=== PATIENT | female | born 1935 | race Caucasian/White ===

== ENCOUNTER 2021-01-18 17:55 | Observation (INO) | payer MEDICARE ==
[2021-01-18] MEDS ORDERED: Sodium Chloride 0.9% 10 ML Syringe FLUSH PRN (18:05)
--- NOTE | 2021-01-18 18:12 | EDM.PDOC ---
ED HPI GENERAL MEDICAL PROBLEM - General Chief Complaint: General Stated Complaint: Weakness Time Seen by Provider: 01/18/21 17:59 Source of Information: Reports: EMS, Family, [facility] Records - History of Present Illness INITIAL COMMENTS - FREE TEXT/NARRATIVE: Gail is an 85 y/o female who arrives to the ER via EMS after assisted living staff at the [facility] called 911. Staff there reported that the patient "just had a bad day". She apparently had a decreased appetite at lunch and then only drank a little Ensure for supper. No fever or respiratory sx. - Related Data Allergies Allergy/AdvReac Type Severity Reaction Status Date / Time celecoxib [From Celebrex] Allergy Stomach Verified 08/29/15 10:29 Upset Home Meds: Home Meds Acetaminophen [Pain Reliever] 500 mg PO ASDIRECTED 08/26/15 [History] Calcium Carbonate/Vitamin D3 [Calcium 500 + Vit D 200 Tablet] 1 tab PO DAILY 08/26/15 [History] Citalopram [Celexa] 1 tab PO DAILY 08/26/15 [History] Ibuprofen [Advil] 200 mg PO Q6HR 08/26/15 [History] Loratadine [Claritin] 10 mg PO DAILY 08/26/15 [History] Magnesium Amino Acid Chelate [Magnesium] 100 mg PO DAILY 08/26/15 [History] Multivitamin [Multiple Vitamins] 1 each PO DAILY 08/26/15 [History] Naproxen Sodium [Aleve] 2 tab PO ASDIRECTED 08/26/15 [History] Pantoprazole Sodium 40 mg PO DAILY 08/26/15 [History] Potassium Chloride 10 meq PO DAILY 08/26/15 [History] atorvaSTATin [Lipitor] 1 tab PO DAILY 08/29/15 [History] Past Medical History Other Gastrointestinal History: hx colon ca Other Musculoskeletal History: R GREAT TOE PAIN Other Neuro History: stroke - 2007 ED ROS GENERAL - Review of Systems Review Of Systems: See Below Reason Not Obtained: Patient has dementia and ROS hard to obtain Constitutional: Reports: Weakness HEENT: Reports: No Symptoms Respiratory: Reports: No Symptoms Cardiovascular: Reports: No Symptoms Endocrine: Reports: No Symptoms GI/Abdominal: Reports: Decreased Appetite : Reports: No Symptoms Musculoskeletal: Reports: No Symptoms Skin: Reports: No Symptoms Neurological: Reports: No Symptoms Psychiatric: Reports: No Symptoms Hematologic/Lymphatic: Reports: No Symptoms Immunologic: Reports: No Symptoms ED EXAM, GENERAL - Physical Exam Exam: See Below General Appearance: Alert, WD/WN, No Apparent Distress (Elderly female, pleasant and answers questions. Forgetful at times.) Eye Exam: Bilateral Eye: PERRL Ears: Normal Canal, Hearing Grossly Normal, Normal TMs Nose: Normal Inspection, Normal Mucosa Throat/Mouth: Other (tongue and lips dry) Head: Atraumatic, Normocephalic Neck: Normal Inspection, Supple, Non-Tender Respiratory/Chest: No Respiratory Distress, Lungs Clear, Chest Non-Tender Cardiovascular: Normal Peripheral Pulses, Regular Rate, Rhythm, No Murmur GI/Abdominal: Normal Bowel Sounds, Soft, Non-Tender (Female) Exam: Normal External Exam Rectal (Female) Exam: Deferred Back Exam: Normal Inspection Extremities: Normal Inspection, Normal Range of Motion, Normal Capillary Refill Neurological: Alert, CN II-XII Intact, Memory Loss Recent Events Psychiatric: Flat Affect Skin Exam: Warm, Dry, Intact, Normal Color, No Rash Lymphatic: No Adenopathy #1 Interpretation EKG Date: 01/18/21 Time: 18:35 Rhythm: NSR Rate (Beats/Min): 90 [place]: Normal P-Wave: Present QRS: Normal ST-T: Normal QT: Normal Comparison: NA - No Prior EKG Course - Vital Signs Text/Narrative:: 1758 The patient was seen on arrival by the TRAFFIC MANAGER. Labs, Xray, and EKG ordered. Note temp 100.8 tympanically on arrival to the ER. 1929 Repeat temp=99.4, labs pending. RN to bedside, reports patient could not transfer to toilet and had taken her pants and shoes off. Patient needed 2 staff to transfer. Labs reviewed, note BUN=24, Parachute Inspector=1.5, CRP=5.4, WBC=10.7, Neuts=80.4%. A liter of NS ordered for mild dehydration. Will plant to admit patient to hospital tonight for observation. Case discussed with Artem Foster CNP who will write Observation orders. - Orders/Labs/Meds Orders: Active Orders 24 hr Category Date Time Status EKG Documentation Completion [RC] STAT Care 01/18/21 18:06 Active CULTURE BLOOD [BC] Stat Lab 01/18/21 18:10 Ordered CULTURE BLOOD [BC] Stat Lab 01/18/21 18:10 Ordered UA RFX LORENZA AND CULT IF INDIC [URIN] Stat Lab 01/18/21 18:08 Ordered Sodium Chloride 0.9% [Saline Flush] Med 01/18/21 18:05 Active 10 ml FLUSH ASDIRECTED PRN Blood Culture x2 Reflex Set [OM.PC] Stat Oth 01/18/21 18:10 Ordered Saline Lock Insert [OM.PC] Stat Oth 01/18/21 18:06 Ordered Labs: Laboratory Tests 01/18/21 01/18/21 01/18/21 Range/Units 18:46 18:46 18:46 WBC 10.7 H (4.0-10.0) x10^3/uL RBC 3.92 L (4.00-5.50) x10^6/uL Hgb 12.4 (12.0-16.0) g/dL Hct 37.8 (33.0-47.0) % MCV 96.4 H (78.0-93.0) fL MCH 31.6 (26.0-32.0) pg MCHC 32.8 (32.0-36.0) g/dL RDW Coeff of [place]id[place] 13.2 (10.0-15.0) % Plt Count 223 (130-400) x10^3/uL Neut % (Auto) 80.4 H (50.0-80.0) % Lymph % (Auto) 9.2 L (25.0-50.0) % [place] % (Auto) 9.7 (2.0-11.0) % Eos % (Auto) 0.5 (0.0-4.0) % Baso % (Auto) 0.2 (0.2-1.2) % Sodium 138 (136-145) mmol/L Potassium 4.7 (3.5-5.1) mmol/L Chloride 101 (98-107) mmol/L Carbon Dioxide 30 (21-32) mmol/L Anion Gap 11.7 (5-15) mmol/L BUN 24 H (7-18) mg/dL Creatinine 1.5 H (0.55-1.02) mg/dL Est Cr Clr Drug Dosing TNP Estimated GFR (MDRD) 33 Glucose 136 H (74-106) mg/dL Lactic Acid 0.8 (0.4-2.0) mmol/L Calcium 9.0 (8.5-10.1) mg/dL Corrected Calcium 9.32 (8.5-10.1) mg/dL Magnesium 2.1 (1.8-2.4) mg/dL Total Bilirubin 0.2 (0.2-1.0) mg/dL AST 14 L (15-37) U/L ALT 20 (14-59) U/L Alkaline Phosphatase 133 H (46-116) U/L Troponin I High Sens 6 (<=51) ng/L C-Reactive Protein 5.4 H (<=0.9) mg/dL Total Protein 7.7 (6.4-8.2) g/dL Albumin 3.6 (3.4-5.0) g/dL Globulin 4.1 Albumin/Globulin Ratio 0.88 - Radiology Interpretation Free Text/Narrative:: XR Chest 1V=no acute findings (see final report) Departure - Departure Time of Disposition: 19:42 Disposition: Refer to Observation Condition: Good Clinical Impression: Weakness, Mild dehydration - Discharge Information Referrals: Roxanne May DO [Primary Care Provider] - Forms: ED Department Discharge Additional Instructions: -Admit to Observation tonight - My Orders Last 24 Hours: My Active Orders 01/18/21 18:05 Sodium Chloride 0.9% [Saline Flush] 10 ml FLUSH ASDIRECTED PRN 01/18/21 18:06 EKG Documentation Completion [RC] STAT Saline Lock Insert [OM.PC] Stat 01/18/21 18:08 UA RFX LORENZA AND CULT IF INDIC [URIN] Stat 01/18/21 18:10 CULTURE BLOOD [BC] Stat CULTURE BLOOD [BC] Stat Blood Culture x2 Reflex Set [OM.PC] Stat - Assessment/Plan Admission H&P: Please use this note as an admission H&P Last 24 Hours: My Active Orders 01/18/21 18:05 Sodium Chloride 0.9% [Saline Flush] 10 ml FLUSH ASDIRECTED PRN 01/18/21 18:06 EKG Documentation Completion [RC] STAT Saline Lock Insert [OM.PC] Stat 01/18/21 18:08 UA RFX LORENZA AND CULT IF INDIC [URIN] Stat 01/18/21 18:10 CULTURE BLOOD [BC] Stat CULTURE BLOOD [BC] Stat Blood Culture x2 Reflex Set [OM.PC] Stat Assessment:: 1)Weakness 2)Mild Dehydration 3)Hx Dementia Plan: -Admit orders and Observation care per Artem Foster CNP.
--- NOTE | 2021-01-18 18:37 | CR ---
[id number] RAD/RAD Chest PA or AP 1V EXAM: RAD Chest PA or AP 1V INDICATION: WEAKNESS, FEVER. COMPARISON: None. DISCUSSION: Cardiomediastinal silhouette is normal in size and contour. No infiltrate, effusion, pneumothorax, or edema. Pulmonary hyperinflation. IMPRESSION: No acute cardiopulmonary abnormality. Gael Chan DO 01/18/21 1836 Thank you for allowing us to participate in the care of your patient.
[2021-01-18 19:15] LABS: CHLORIDE,CL 101 mmol/L (98-107); SODIUM,NA 138 mmol/L (136-145)
[2021-01-18 19:18] LABS: ANION GAP 11.7 mmol/L (5-15)
[2021-01-18] MEDS ORDERED: Sodium Chloride 0.9% 1,000 ML IV ONE (19:30)
[2021-01-18 20:23] LABS: BARBITURATE SCREEN,URINE NEGATIVE (NEGATIVE); BENZODIAZEPINES SCREEN,URINE NEGATIVE (NEGATIVE); EDDP,URINE SCREEN NEGATIVE (NEGATIVE); METHAMPHETAMINE SCREEN, URINE NEGATIVE (NEGATIVE); TCA SCREEN,URINE NEGATIVE (NEGATIVE); THC SCREEN,URINE 50 NG/ML NEGATIVE (NEGATIVE)
[2021-01-18] MEDS: Sodium Chloride 0.9% 1,000 ML IV SCH (21:15)
[2021-01-18 21:16] LABS: CORONAVIRUS COVID-19 NAA NEGATIVE (NEGATIVE)
[2021-01-19] MEDS: Melatonin 3 MG Tab PO SCH ×2 (00:21→20:12)
[2021-01-19] MEDS: Sodium Chloride 0.9% 1,000 ML IV SCH ×2 (05:04→13:11)
[2021-01-19] MEDS: Acetaminophen 500 MG Tab PO PRN (05:08)
[2021-01-19 07:51] LABS: ANION GAP 12.3 mmol/L (5-15)
--- NOTE | 2021-01-19 09:45 | CT ---
[id number] CT/CT Head WO IV EXAM: CT Head WO IV CLINICAL DATA: ALTERED MENTAL STATUS, WEAKNESS COMPARISON STUDY: None FINDINGS: No intracranial hemorrhage, extra-axial fluid collection, mass, or acute ischemia. Area of encephalomalacia within the right occipital lobe consistent with old infarct. Generalized parenchymal atrophy with scattered areas of nonspecific white matter disease, commonly seen as sequela of chronic microvascular ischemia. Soft tissues are unremarkable. Paranasal sinuses and mastoid air cells are clear. IMPRESSION: Old right occipital lobe infarct. No definite acute intracranial process. Gael Chan DO 01/19/21 0944 Thank you for allowing us to participate in the care of your patient.
--- NOTE | 2021-01-19 11:05 | HP ---
CHIEF COMPLAINT: Weakness and deconditioning. HISTORY OF PRESENT ILLNESS: This 85-year-old female patient was brought to the emergency room at [facility] last evening via EMS after assisted living staff at [facility] had called 911. The staff at the assisted living facility felt the patient "was just off." The patient was also having significant weakness and was difficult to transfer, which is not her baseline. The patient has also had a poor appetite. Workup in the emergency room was essentially negative. The patient's labs were significant for elevated CRP of 5.4. The patient's BUN and creatinine were 24 and 1.5 respectively. The patient has chronic kidney disease with a baseline creatinine of 1.3. The patient had mild leukocytosis with a WBC of 10.7. The patient's COVID and influenza screens were negative. Urine drug screen was also negative. UA did not show any UTI. The patient was admitted to the observation unit for her weakness and for further testing. PAST MEDICAL HISTORY: 1. Anemia. 2. Malignant neoplasm of the colon. 3. Esophageal reflux. 4. Major depressive disorder. 5. Peripheral neuropathy. 6. Hyperlipidemia. 7. History of foot drop. 8. Chronic kidney disease. 9. Vascular dementia. PAST SURGICAL HISTORY: Colon surgery in 2007. FAMILY HISTORY: Noncontributory. SOCIAL HISTORY: The patient does not consume alcohol. The patient does not smoke cigarettes. No illegal substance use. The patient is a resident at [facility]. ALLERGIES: Celebrex, which causes GI discomfort. MEDICATIONS: 1. Protonix 40 mg 1 tablet p.o. daily. 2. Namenda 10 mg 1 tablet p.o. twice daily. 3. Potassium chloride 10 mEq 1 capsule p.o. daily. 4. Lipitor 20 mg 1 tablet p.o. daily. 5. Celexa 40 mg 1 tablet p.o. daily. 6. Calcium carbonate/vitamin-D 1 tablet p.o. 3 times daily. 7. Aspirin 325 mg 1 tablet p.o. daily. 8. Melatonin 5 mg 1 tablet p.o. daily at bedtime. 9. Multivitamin 1 tablet p.o. daily. 10.Magnesium 100 mg 1 capsule p.o. daily. 11.Acetaminophen 650 mg every morning. 12.Ibuprofen 200 mg 1 tablet p.o. every 6 hours as needed. LABORATORY STUDIES: 1. CBC: White blood cell count 10.7, hemoglobin 12.4, hematocrit 37.8, platelets 223,000. 2. CMP: Sodium 138, potassium 4.7, chloride 101, CO2 of 30, anion gap 11.7, BUN 24, creatinine 1.5, GFR 33, glucose 136, calcium 9.0, total bilirubin 0.2, AST 14, ALT 20, alkaline phosphatase 133, total protein 7.7, albumin 3.6. 3. Lactic acid 0.8. 4. Magnesium 2.1. 5. CRP 5.4. 6. Troponin 6. 7. UA is negative. 8. Drug screen is negative. 9. Influenza type A/B negative. 10.COVID-19 is negative. REVIEW OF SYSTEMS: Skin: Negative. Respiratory: Negative. Cardiovascular: Negative. Abdomen: Negative. Neurological: Negative. PHYSICAL EXAMINATION: Vital Signs: Height 5 feet 4 inches, weight 142.4 pounds, temperature 98.2, pulse 92, blood pressure 153/91, respiratory rate 16, oxygen saturation 95% on room air. Skin: Intact, warm, and dry. Respiratory: Lungs are decreased throughout, but clear. Cardiovascular: Regular rate and rhythm, no murmur. Abdomen: Soft, nontender. Bowel sounds are normoactive x4. Extremities: No edema. Neurological: The patient is pleasantly confused secondary to vascular dementia. The patient does not appear to be in any acute distress. No new focal neurological deficits. ASSESSMENT: 1. Vascular dementia. 2. Weakness and deconditioning. 3. Hyperlipidemia. 4. Chronic kidney disease stage 3B. 5. Major depressive disorder. 6. Esophageal reflux. 7. Malignant neoplasm of the colon. PLAN: This 85-year-old female patient is admitted to the observation unit for the above diagnoses. We will consult Physical and Occupational Therapy for the patient's weakness. We will continue to slowly rehydrate the patient with IV fluids. Continue home medications the same. The patient wishes to be a code 1, which was verified with family who are at bedside. The patient does wish to transfer to a higher level of care should the need arise. I anticipate the patient will be admitted less than 2 midnights, unless physical therapy feels she needs longer treatment. This is an [facility] patient who was seen by me as an [facility] provider. TB: 01/19/2021 07:50:59 MODL: 01/19/2021 10:59:17 /[id number]
[2021-01-19] MEDS: Memantine 10 MG Tab PO SCH ×2 (11:20→20:12)
[2021-01-19] MEDS: Aspirin 325 MG Tab.EC PO SCH (11:20)
[2021-01-19] MEDS: Magnesium Chloride 64 MG Tab.ER PO SCH (11:20)
[2021-01-19] MEDS: Multivitamins with Iron/Calcium/Folic Acid/Minerals Tab PO SCH (11:20)
[2021-01-19] MEDS: Potassium Chloride 10 MEQ Tab.ER PO SCH (11:20)
[2021-01-19] MEDS: Citalopram 20 MG Tab PO SCH (11:20)
[2021-01-19] MEDS: Loratadine 10 MG Tab PO SCH (11:20)
[2021-01-19] MEDS: Pantoprazole 40 MG Tab.CR PO SCH (11:20)
--- NOTE | 2021-01-19 18:50 | PCM.SN.2 ---
- Free Text/Narrative Note: 01/19/2021 15:00 Spoke with patient and Grandson (Hema) at bedside. Plan of care discussed at length. Patient will discharge back to assisted living ([facility]) tomorrow. All questions answered. Grandson agrees with the plan of care.
[2021-01-19] MEDS: atorvaSTATin 10 MG Tab PO SCH (20:12)
[2021-01-20 07:23] LABS: ANION GAP 12.1 mmol/L (5-15)
[2021-01-20] MEDS: Magnesium Chloride 64 MG Tab.ER PO SCH (07:27)
[2021-01-20] MEDS: Memantine 10 MG Tab PO SCH (07:28)
[2021-01-20] MEDS: Pantoprazole 40 MG Tab.CR PO SCH (07:28)
[2021-01-20] MEDS: Multivitamins with Iron/Calcium/Folic Acid/Minerals Tab PO SCH (07:28)
[2021-01-20] MEDS: atorvaSTATin 10 MG Tab PO SCH (07:28)
[2021-01-20] MEDS: Loratadine 10 MG Tab PO SCH (07:28)
[2021-01-20] MEDS: Aspirin 325 MG Tab.EC PO SCH (07:28)
[2021-01-20] MEDS: Citalopram 20 MG Tab PO SCH (07:28)
[2021-01-20] MEDS: Potassium Chloride 10 MEQ Tab.ER PO SCH (07:28)
[2021-01-20] MEDS: Acetaminophen 500 MG Tab PO PRN (07:28)
[2021-01-20 10:29] VITALS: BP 100/43; PULSE 69
--- NOTE | 2021-01-20 12:47 | DISCH ---
ADMITTING DIAGNOSES: Weakness and deconditioning. HISTORY OF PRESENT ILLNESS: An 85-year-old female patient was brought to the emergency room at [facility] yesterday via EMS after assisted living staff at [facility] had called 911. The staff at the assisted living facility felt the patient "was just off." The patient was also having significant weakness and was difficult to transfer. According to the assisted living staff, this is not her baseline. The patient had also been having a poor appetite over the past couple of days. Workup in the emergency room was essentially negative. The patient's labs were significant for an elevated CRP of 5.4. The patient's BUN and creatinine were 24 and 1.5 respectively. The patient has a history of chronic kidney disease with a baseline creatinine of 1.3. The patient had mild leukocytosis of 10.7. COVID and influenza were negative. Drug screen was negative. UA did not show any UTI. The patient was admitted to the observation unit for her weakness and further testing. BRIEF HOSPITAL COURSE: A CT of the head was obtained which did not show any acute etiology. The patient's laboratory work remained stable. The patient remained hemodynamically stable. The patient is confused secondary to her vascular dementia. The patient's weakness has improved. The patient did not have any problems with urination or bowel movements. The patient's appetite had been good. CONSULTATIONS: Physical and Occupational Therapy, Case Management. DIET: Low sodium, heart healthy. ACTIVITY: Per PT recommendation. DISCHARGE LABORATORY WORK: 1. CBC: White blood cell count 8.9, hemoglobin 10.5, hematocrit 31.9, platelet count 208,000. 2. CMP: Sodium 139, potassium 4.1, chloride 102, CO2 of 26, anion gap 12.1, BUN 14, creatinine 1.2, GFR 43, glucose 87, calcium 8.5, total bilirubin 0.6, AST 14, ALT 8, alkaline phosphatase 88, total protein 6.4, albumin 2.7. DISCHARGE MEDICATIONS: 1. Acetaminophen 500 mg 1 tablet p.o. every 4 hours as needed. 2. Aspirin 325 mg 1 tablet p.o. daily. 3. Atorvastatin 20 mg 1 tablet p.o. daily. 4. Citalopram 40 mg 1 tablet p.o. daily. 5. Loratadine 10 mg 1 tablet p.o. daily. 6. Magnesium chloride 100 mg 1 tablet p.o. daily. 7. Melatonin 5 mg 1 tablet p.o. daily at bedtime. 8. Namenda 10 mg 1 tablet p.o. twice daily. 9. Multivitamin 1 tablet p.o. daily. 10.Pantoprazole 40 mg 1 tablet p.o. daily. 11.Potassium chloride 10 mEq 1 tablet p.o. daily. REVIEW OF SYSTEMS: Skin: Negative. Respiratory: Negative. Cardiovascular: Negative. Abdomen: Negative. Extremities: Negative. Neurological: Negative. DISCHARGE PHYSICAL EXAMINATION: Vital Signs: Temperature 99.8, pulse 69, blood pressure 100/43, respiratory rate 19, oxygen saturation 97% on room air. Skin: Intact, warm and dry. Respiratory: Lungs are decreased throughout, otherwise clear. Cardiovascular: Regular rate and rhythm, no murmur. Abdomen: Soft, nontender. Bowel sounds are hypoactive x4. Extremities: No edema. Neurological: The patient is pleasantly confused secondary to vascular dementia. The patient is cooperative. No new focal neurological deficits. The patient does not appear to be in any acute distress. ASSESSMENT: 1. Vascular dementia. 2. Weakness and deconditioning. 3. Hyperlipidemia. 4. Chronic kidney disease, stage IIIB. 5. Major depressive disorder. 6. Esophageal reflux. 7. Malignant neoplasm of the colon. PLAN: An 85-year-old female patient was admitted to the observation unit for the above diagnoses. Physical and occupational therapy have reached their goals. The patient will be discharged back to the assisted living facility today. Continue home medications the same without any changes. The patient will be seen by Home Health. The patient is a code 1. The patient will follow up with her PCP in 1 week for a hospital discharge followup. [id number] documentation. I certify that Gail Arriaga is under my care and that I had a [id number] encounter that meets the physician [id number] requirements on 01/20/2021. This date must match the progress note/clinic visit documentation supporting this information. The encounter with the patient was in whole or in part for the following medical conditions, which is the primary reason for home healthcare: Vascular dementia, weakness and deconditioning, history of colon cancer, hyperlipidemia, chronic kidney disease stage IIIB, major depressive disorder, esophageal reflux. My clinical findings support the need for the services because of inability to safely get to outpatient facility for therapy due to fall risk, lack of muscle coordination and tone, shortness of breath with or without activity (walking greater than 20 feet; talking; completing ADLs) and profound weakness. Further, I certify that my clinical findings support that this patient is homebound (i.e. absences from home require considerable and taxing effort, or are for medical reasons, or for buddhist services, or infrequent, or of short duration when from other reasons) because patient is unable to safely ambulate distances less than 20 feet, patient experiences shortness of breath at rest and/or with daily activity, patient requires frequent rest periods due to profound weakness and endurance, patient requires use of assistive device and/or use of wall/furniture to ambulate (high fall risk) and patient requires assistance of another person to leave the home. Certification: For home services. I certify that Gail Arriaga meets the homebound requirements for the peer source and has a need for intermittent fdc, physical therapy, and/or speech or occupational therapy services in the home for the diagnoses currently outlined in the initial plan of care. These services will continue to be monitored by Dr. Roxanne May. This physician will periodically review and update the plan of care as required. My signature indicates that this supplemental documentation has been incorporated into the patient's medical record. TB: 01/20/2021 10:36:46 MODL: 01/20/2021 12:26:12 /[id number] [email or web address]
== END 2021-01-20 10:40 | disposition home or self-care (01) ==
LOC: VM.ED 17:55 → VM.MS 19:45
PROVIDERS: ADMIT Nurse Practitioner Family; ATTEND Nurse Practitioner Family
DX: R53.1 Weakness (principal); D64.9 Anemia, unspecified; G62.9 Polyneuropathy, unspecified; E78.5 Hyperlipidemia, unspecified; N18.9 Chronic kidney disease, unspecified; K21.00 Gastro-esophageal reflux disease with esophagitis, without bleeding; N18.32 Chronic kidney disease, stage 3b; Z98.890 Other specified postprocedural states; Z88.8 Allergy status to other drugs, medicaments and biological substances; Z79.899 Other long term (current) drug therapy; Z79.82 Long term (current) use of aspirin; Z20.822 Contact with and (suspected) exposure to COVID-19; F01.50 Vascular dementia, unspecified severity, without behavioral disturbance, psychotic disturbance, mood disturbance, and anxiety
CPT/HCPCS: 0240U; 36415; 70450; 71045; 80053; 80305-QW; 81001; 83605; 83735; 84484; 85025; 86140; 87040; 93005; 93010; 97163-GP; 97165-GO; 99284; 99285-25; A9270-GY; G0378; J7030